=== PATIENT | female | born 1945 | race Caucasian/White ===

== ENCOUNTER 2019-11-16 12:43 | Emergency (ER) | payer OTHER ==
[~2019-11-16] VITALS: Ht 162.6 cm; Wt 59.0 kg
[~2019-11-16 12:43] MED LIST: ASPIR 8181 MG PO; B 12 PO; CALCIUM600 MG PO; OMEPRAZOLE20 M1 PO; RANITIDINE HCL300 MG PO; SIMVASTATIN20 MG PO; SPIRONOLACTONE25 MG PO; TURMERIC PO; VITAMIN D 3 PO
--- OUTSIDE RECORDS SUMMARY | 2019-11-16 12:47 | XMS REPORT ---
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 Allergies, Adverse Reactions, Alerts This patient has no known allergies or adverse reactions. Medications This patient has no known medications. Results Test Description Test Time Test Comments Text Results Atomic Results Result Comments SCR MAMM BILATERAL SHAHAB CAD DIGITAL 2018-11-05 08:36:05 - SCR MAMM BILATERAL SHAHAB CAD DIGITALBILATERAL DIGITAL SCREENING MAMMOGRAM 3D/2D WITH CAD: 11/05/2018CLINICAL: Asymptomatic. Digital breast tomosynthesis was performed in addition to routine CC and MLO views. Current mammographic images were evaluated by either a [employer] M-Vu or a [employer] ImageChecker CAD (computer aided detection system). Comparison is made to exams dated 03/19/2017 mammogram, 2015 mammogram, 02/01/2015 mammogram, and 10/30/2013 mammogram - [facility]-. The tissue of both breasts is predominantly fatty. No suspicious mass, architectural distortion, malignant type calcification, or lymph node abnormality detected. Breast architecture is stable compared to prior exams.IMPRESSION: NEGATIVEThere is no mammographic evidence of malignancy. Resume annual screening mammography in one year. Kimberly madrid/laney:11/05/2018 08:36:05 Executive Producer Promos: Caroline LY, [facility]-FWletter sent: BIRADS 1-2 Normal Mammogram BI-RADS: 1 Negative
[2019-11-16] MEDS ORDERED: ONDANSETRON HCL 4 MG ORAL DISINTEGRATING TAB PO ONE (13:15)
--- NOTE | 2019-11-16 13:38 | NUR ---
PATIENT TO ROOM 11
[2019-11-16 14:27] LABS: BASOPHILS % 0.3 % (0.0-1.0); EOSINOPHILS % 0.4 % (0.0-6.0); HEMATOCRIT 39.8 % (34.2-44.1); HEMOGLOBIN 13.2 g/dL (12.0-16.0); LYMPHOCYTES # (AUTO) 1.2 (1.0-3.2); LYMPHOCYTES % 12.4 % (18.0-39.1); MEAN CORPUSCULAR HEMOGLOBIN 30.3 pg (28-32); MEAN CORPUSCULAR HGB CONC 33.2 g/dL (31-35); MEAN CORPUSCULAR VOLUME 91.3 fL (81-99); MONOCYTES # (AUTO) 0.6 (0.2-0.8); MONOCYTES % 6.1 % (4.4-11.3); NEUTROPHILS # (AUTO) 7.4 (2.1-6.9); NEUTROPHILS % 79.6 % (38.7-80.0); PLATELET COUNT 182 x10e3/uL (140-360); RED BLOOD COUNT 4.36 x10e6/uL (3.6-5.1); RED CELL DISTRIBUTION WIDTH 14.1 % (11.7-14.4)
[2019-11-16 14:51] LABS: ALANINE AMINOTRANSFERASE 39 IU/L (0-55); ALBUMIN 3.8 g/dL (3.5-5.0); ALBUMIN/GLOBULIN RATIO 1.4 (0.8-2.0); ALKALINE PHOSPHATASE 61 IU/L (40-150); BLOOD UREA NITROGEN 16 mg/dL (7-26); BUN/CREATININE RATIO 24 (6-25); CALCIUM 8.7 mg/dL (8.4-10.2); CARBON DIOXIDE 23 mmol/L (22-29); CHLORIDE 107 mmol/L (98-107); CREATINE KINASE 30 IU/L (29-168); CREATININE, SERUM 0.66 mg/dL (0.57-1.11); EST GLOMERULAR FILTRATION RATE > 60 ML/MIN (60-); GLUCOSE 134 mg/dL (74-118); SODIUM 140 mmol/L (136-145)
[2019-11-16] MEDS ORDERED: MECLIZINE HCL 12.5 MG TAB PO ONE (15:30)
[2019-11-16] MEDS ORDERED: SODIUM CHLORIDE 0.9% 1000ML 1,000 ML IV SCH (15:30)
[2019-11-16] MEDS ORDERED: IOPAMIDOL 370 MG/ML 200 ML INFUS..BTL INJ ONE (16:50)
[2019-11-16] MEDS ORDERED: SODIUM CHLORIDE 0.9% 100 ML ONE (16:50)
--- NOTE | 2019-11-16 18:04 | Diagnostic Imaging Report ---
History:Dizziness, emesis, Comparison studies:None Technique: Axial images were obtained from the skull base to the vertex. Coronal and sagittal images reconstructed from the axial data. Dose modulation, iterative reconstruction, and/or weight based adjustment of the mA/kV was utilized to reduce the radiation dose to as low as reasonably achievable. Intravenous contrast: 100 cc of Omnipaque 300. Noncontrast CT Head Findings: Scalp/skull: No abnormalities. No fractures, blastic or lytic lesions. Extra-axial spaces: No masses. No fluid collections. Brain sulci: Mildly prominent. Ventricles: Mild prominence. No hydrocephalus. Parenchyma: Patchy and confluent hypodensities within the cerebral white matter is consistent with chronic microvascular ischemic changes.. No masses, hemorrhage, acute or chronic cortical vascular insults. Sellar/suprasellar region: No abnormalities Craniocervical junction: Patent foramen magnum. No Chiari one malformation. CTA Findings: Right internal carotid artery: Patent. No abnormalities. Left internal carotid artery: Patent. No abnormalities. Right vertebral artery: Dominant right vertebral artery is patent.. Left vertebral artery: The nondominant left vertebral artery terminates at the level of the posterior inferior cerebellar artery. Basilar artery: Patent. No abnormalities. Posterior cerebral arteries: Patent. No abnormalities. Anatomical variants: Acom: Patent . Pcoms: Patent. Vertebral arteries: Right dominant . IMPRESSION: 1. No acute intracranial abnormality. 2. No large branch vessel occlusion, aneurysm, or hemodynamically significant stenosis of the intracranial arterial vascular. 3. Chronic microvascular ischemic changes. 4. Mild global parenchymal volume loss. Signed by: DR Alfredo Ayala M.D. on 11/16/2019 6:22 PM
--- NOTE | 2019-11-16 18:06 | NUR ---
PATIENT AMBULATED IN HALLWAYS. DENIES ANY DIZZINESS AT THIS TIME
== END 2019-11-16 19:01 | disposition home or self-care (01) ==
LOC: ER 12:43
DX: R42 Dizziness and giddiness (principal); R11.2 Nausea with vomiting, unspecified
CPT/HCPCS: 36415; 70496; 80053; 82550; 82553; 84484; 85025; 99284; J7030; J7050; J8597; Q0162; Q9967